=== PATIENT | male | born 1995 | race Caucasian/White ===

== ENCOUNTER 2018-10-12 19:12 | Emergency (ER) | payer SELFPAY, BC ==
[2018-10-12] MEDS: SOD CHLORIDE 0.9% 1,000 ML IV (20:37)
[2018-10-12] MEDS: DIPHENHYDRAMINE 50 MG INJ IV (20:38)
[2018-10-12] MEDS: PROCHLORPERAZINE 10 MG INJ IV (20:40)
[2018-10-12] MEDS: KETOROLAC 30 MG INJ IV (20:40)
== END 2018-10-12 21:57 | disposition home or self-care (01) ==
LOC: FTE 19:12
DX: G43.909 Migraine, unspecified, not intractable, without status migrainosus (principal)
CPT/HCPCS: 96374; 96375; 99284-25; J0780